=== PATIENT | female | born 1990 | race Caucasian/White ===

== ENCOUNTER → 2018-09-04 | Outpatient (REF) | END | disposition home or self-care (01) | DRG 951 | LOC: LAB 08:14 | PROVIDERS: ATTEND Family Medicine | DX: Z02.6 Encounter for examination for insurance purposes (principal) ==

== ENCOUNTER → 2021-02-17 | Outpatient (REF) | END | disposition home or self-care (01) | DRG 866 | LOC: LAB 13:52 | PROVIDERS: ATTEND Nurse Practitioner Family | DX: B34.2 Coronavirus infection, unspecified (principal) ==